=== PATIENT | female | born 1970 | race Caucasian/White ===

== ENCOUNTER 2018-06-17 14:50 | Emergency (ER) | payer MEDICAID ==
[~2018-06-17] VITALS: Ht 170.2 cm; Wt 88.9 kg
[~2018-06-17 14:50] MED LIST: ALBUTEROL INH; ALBUTEROL INHAL17 GM IH; ALBUTEROL2.5 MG/0.1 IH; ALBUTEROL2.5 MG/3 M; ALPRAZOLAM 0.50.5 M1 PO; AMBIEN 10 MG TA10 MG PO; ANASPAZ0.125 MG SL; ATIVAN1 MG PO; AZITHROMYCIN 2250 MG PO; AZITHROMYCIN PO; BACTRIM DS TAB1 EACH PO; BIAXIN 500 MG500 M1 PO; BUSPIRONE HCL10 MG PO; CEFPODOXIME PR200 M1 PO; CIPROFLOXACIN500 M1; CIPROFLOXACIN500 M1 PO; CLARITIN10 MG PO; CLONIDINE0.1 PO; COLACE100 MG PO; COMBIVENT INH; DEPAKOTE 250MG250 M1 PO; DEXILANT30 MG; DEXILANT60 MG PO; DOXYCYCLINE 10100 M1 PO; EFFEXOR XR37.5 MG PO; EFFEXOR XR75 MG; ESTROVEN MAX200 MCG; FENTANYL PA25 MCG/HR TRANSDERM; FIBERCON625 M1 PO; FLEXERIL PO; FLOVENT HFA 2220 MC1 IH; HYDROCODON-ACE1 EAC7 PO; HYDROCODONE-AP1 EAC6 PO; HYDROCODONE-APA15 ML; HYDROXYZINE HCL25 M1; HYDROXYZINE HCL25 M1 PO; IBUPROFEN 600600 M1 PO; IBUPROFEN 800800 M1 PO; LAMICTAL150 MG PO; LEXAPRO PO; LORTABELXR PO; MEDROL DOSE PACK PO; MIRALAX17 GM PO; NAC600 MG PO; NEFAZODONE HCL50 MG PO; NICOTINE TRANSD14 M1 TOP; NORCO 5-325 TA1 EACH PO; OXYCONTIN10 M1 PO; PHENERGAN 25 MG25 M1; PHENERGAN 25 MG25 M1 PO; PRAVASTATIN SOD20 MG PO; PRAVASTATIN SOD40 MG PO; PREDNISONE 10 M10 MG PO; PREVACID30 M1 PO; PRILOSEC40 MG PO; PROAIR HFA8.5 GM INH; PROMETHAZINE HC25 M1 PO; PROVENTIL HFA6.7 G1 INH; PYRIDIUM200 MG PO; REMERON15 M1 PO; SEROQUEL 25 MG25 M1 PO; SEROQUEL200 MG PO; SINGULAIR 10 MG10 M1 PO; SYMBICORT160 MCG/4. INH; SYMBICORT80 MCG/4.1 INH; TORADOL 10 MG T10 MG PO; TRAMADOL 50 MG50 MG PO; VALIUM5 MG PO; VICODIN 5-5001 EACH PO; VITAMIN D3400 UNI2 PO; XANAX 0.25 MG0.25 MG PO; XANAX XR1 MG; ZANAFLEX4 MG PO; ZOFRAN ODT4 MG PO; ZOLOFT100 MG; ZYRTEC; [UNRECOGNIZED DRUG - OTHER]; [UNRECOGNIZED DRUG - OTHER] PO; vantin PO
[2018-06-17] MEDS ORDERED: LIORESAL 10 MG10 MG PO (15:25)
[2018-06-17] MEDS ORDERED: CLONAZEPAM 0.50.5 M1 PO (15:25)
[2018-06-17] MEDS ORDERED: LIPITOR10 MG PO (15:26)
[2018-06-17] MEDS ORDERED: NEXIUM40 MG PO (15:26)
[2018-06-17] MEDS ORDERED: ALDACTONE100 MG PO (15:27)
[2018-06-17] MEDS ORDERED: SYNTHROID25 MC1 PO (15:27)
[2018-06-17] MEDS ORDERED: LISINOPRIL20 MG PO (15:27)
[2018-06-17] MEDS ORDERED: AMITIZA 24 MCG24 MC1 PO (15:28)
[2018-06-17] MEDS ORDERED: LEXAPRO5 MG PO (15:28)
[2018-06-17] MEDS ORDERED: NORCO 5-325 TA1 EACH PO (16:43)
[2018-06-17 16:56] VITALS: BP 144/93
== END 2018-06-17 16:57 | disposition home or self-care (01) ==
LOC: M.ERS 14:50
DX: S63.92XA Sprain of unspecified part of left wrist and hand, initial encounter (principal); W19.XXXA Unspecified fall, initial encounter; Y93.89 Activity, other specified; Y92.89 Other specified places as the place of occurrence of the external cause; Y99.8 Other external cause status; F41.9 Anxiety disorder, unspecified; J45.909 Unspecified asthma, uncomplicated; G43.909 Migraine, unspecified, not intractable, without status migrainosus; K21.9 Gastro-esophageal reflux disease without esophagitis; Z90.710 Acquired absence of both cervix and uterus; M54.9 Dorsalgia, unspecified; G89.29 Other chronic pain; F17.210 Nicotine dependence, cigarettes, uncomplicated; Z88.1 Allergy status to other antibiotic agents; Z88.0 Allergy status to penicillin; Z88.5 Allergy status to narcotic agent; Z88.8 Allergy status to other drugs, medicaments and biological substances

== ENCOUNTER 2018-12-08 11:00 | Emergency (ER) | payer MEDICAID ==
[~2018-12-08] VITALS: Ht 170.2 cm; Wt 90.7 kg
[~2018-12-08 11:00] MED LIST changes: +ALDACTONE100 MG PO; +AMITIZA 24 MCG24 MC1 PO; +CLONAZEPAM 0.50.5 M1 PO; +LEXAPRO5 MG PO; +LIORESAL 10 MG10 MG PO; +LIPITOR10 MG PO; +LISINOPRIL20 MG PO; +NEXIUM40 MG PO; +SYNTHROID25 MC1 PO
[2018-12-08] MEDS ORDERED: TRAMADOL 50 MG50 MG PO (11:10)
[2018-12-08 11:44] LABS: CALCIUM 9.3 mg/dL (8.5-10.1); CREATININE 0.7 mg/dL (0.6-1.3); POTASSIUM 3.9 mmol/L (3.5-5.1)
[2018-12-08] MEDS ORDERED: HYDROCODONE-AP1 EAC6 PO (12:04)
[2018-12-08 12:21] VITALS: BP 138/73
== END 2018-12-08 12:37 | disposition home or self-care (01) ==
LOC: M.ERS 11:00
PROVIDERS: Emergency Medicine Emergency Medical Services
DX: S22.42XA Multiple fractures of ribs, left side, initial encounter for closed fracture (principal); F17.210 Nicotine dependence, cigarettes, uncomplicated; F41.9 Anxiety disorder, unspecified; J45.909 Unspecified asthma, uncomplicated; M54.9 Dorsalgia, unspecified; G89.29 Other chronic pain; G43.909 Migraine, unspecified, not intractable, without status migrainosus; M41.9 Scoliosis, unspecified; K21.9 Gastro-esophageal reflux disease without esophagitis; K58.9 Irritable bowel syndrome, unspecified; Z88.8 Allergy status to other drugs, medicaments and biological substances; Z88.5 Allergy status to narcotic agent; Z88.1 Allergy status to other antibiotic agents; Z88.0 Allergy status to penicillin; Z90.710 Acquired absence of both cervix and uterus; W18.11XA Fall from or off toilet without subsequent striking against object, initial encounter; Y92.89 Other specified places as the place of occurrence of the external cause; Y93.89 Activity, other specified; Y99.8 Other external cause status

== ENCOUNTER 2019-08-15 01:43 | Emergency (ER) | payer OTHER, MEDICAID ==
[~2019-08-15] VITALS: Ht 170.2 cm; Wt 90.7 kg
[2019-08-15 02:25] LABS: ABSOLUTE EOSINOPHILS 0.1 thou/uL (0.0-0.7); ABSOLUTE LYMPHOCYTES 1.3 thou/uL (0.8-5.3); ABSOLUTE MONOCYTES 0.3 thou/uL (0.0-1.2); BASOPHILS 0.4 %; HEMATOCRIT 36.8 % (37.0-47.0); HEMOGLOBIN 12.7 gm/dL (12.0-15.0); LYMPHOCYTES 18.9 %; MCH 30.5 pg (26.0-34.0); MCHC 34.6 g/dL (28.0-37.0); MONOCYTES 4.6 %; MPV 8.5 fl. (7.2-11.1); NUCLEATED RBCS 0 /100WBC; PLATELET COUNT* 200 thou/uL (150-400); POLYS 74.1 %; RBC 4.18 mil/uL (4.20-5.00); RDW-CV 13.4 % (10.5-14.5); WBC 6.8 thou/uL (4.0-11.0)
[2019-08-15 02:35] LABS: CALCIUM 8.3 mg/dL (8.5-10.1); CREATININE 0.7 mg/dL (0.6-1.3)
[2019-08-15 02:37] LABS: POTASSIUM 2.9 mmol/L (3.5-5.1)
[2019-08-15 02:40] LABS: ALBUMIN 3.7 g/dL (3.4-5.0); TOTAL BILIRUBIN 0.4 mg/dL (<0.1-1.0); TOTAL PROTEIN 6.7 g/dL (6.4-8.2)
[2019-08-15] MEDS ORDERED: ZOFRAN ODT4 MG PO (03:25)
[2019-08-15 03:44] LABS: URINE BILIRUBIN NEGATIVE (Negative); URINE BLOOD NEGATIVE (Negative); URINE CLARITY CLEAR; URINE COLOR YELLOW; URINE GLUCOSE-RANDOM NEGATIVE (Negative); URINE KETONES NEGATIVE (Negative); URINE LEUKOCYTES-REFLEX NEGATIVE (Negative); URINE NITRITE-REFLEX NEGATIVE (Negative); URINE PROTEIN NEGATIVE (Negative); URINE SPECIFIC GRAVITY 1.025 (1.005-1.030); URINE UROBILINOGEN 0.2 E.U./dl (0.2-1.0)
[2019-08-15 03:52] LABS: AMP/METHAMP Negative (Negative); BARBITURATES Negative (Negative); BENZODIAZEPINES Negative (Negative); COCAINE Negative (Negative); METHADONE Negative (Negative); OPIATES Negative (Negative); PCP Negative (Negative); THC Negative (Negative)
[2019-08-15 03:58] VITALS: BP 115/60
--- NOTE | 2019-08-15 11:07 | EKG ---
[place] [address] ELECTROCARDIOGRAM REPORT Name: AYANA CARLISLE Room: [facility]#: [id number] Admission: 08/15/19 Attend Phys: Discharge: 08/15/19 Date of : 70 Report #: [id number] THIS REPORT FOR: //name// [facility] ED Test Date: 2019-08-15 Test Time: 02:06:32 Pat Name: AYANA CARLISLE Department: Room: Gender: F Soldering Machine Operator: SHANNON : 1970 Requested By: Constance Barron Order Number: [id number] Melida MD: Maycol Isbell Measurements Intervals [place]ler Rate: 81 P: 3 IN: 184 QRS: 36 QRSD: 108 T: 18 QT: 395 QTc: 459 Interpretive Statements Sinus rhythm Probable left atrial enlargement RSR' in V1 or V2, probably normal variant Compared to ECG 01/14/2015 12:42:14 no change Electronically Signed On 08-15-2019 11:07:29 [employer]ANKING TE[employer] by Maycol Isbell [email or web address] <ELECTRONICALLY SIGNED> By: Maycol Isbell MD, [facility] 08/15/19 1107 5 Maycol Isbell MD, FAC /EPI
== END 2019-08-15 03:59 | disposition home or self-care (01) ==
LOC: M.ERS 01:43
PROVIDERS: Personal Emergency Response Attendant
DX: K52.9 Noninfective gastroenteritis and colitis, unspecified (principal); G43.909 Migraine, unspecified, not intractable, without status migrainosus; F41.9 Anxiety disorder, unspecified; J45.909 Unspecified asthma, uncomplicated; G89.29 Other chronic pain; M19.90 Unspecified osteoarthritis, unspecified site; M41.9 Scoliosis, unspecified; K21.9 Gastro-esophageal reflux disease without esophagitis; F17.210 Nicotine dependence, cigarettes, uncomplicated; K58.9 Irritable bowel syndrome, unspecified; Z88.0 Allergy status to penicillin; Z88.1 Allergy status to other antibiotic agents; Z90.710 Acquired absence of both cervix and uterus; Z88.8 Allergy status to other drugs, medicaments and biological substances

== ENCOUNTER 2020-10-28 21:56 | Emergency (ER) | payer MEDICAID ==
[~2020-10-28] VITALS: Ht 172.7 cm; Wt 88.5 kg
[2020-10-28] MEDS ORDERED: SUPER THERAVIT1 EACH PO (22:21)
[2020-10-28] MEDS ORDERED: VITAMIN D-40010 MCG PO (22:21)
[2020-10-28] MEDS ORDERED: COQ-1030 MG PO (22:21)
[2020-10-28 22:42] LABS: ABSOLUTE BASOPHILS 0.1 thou/uL (0.0-0.2); ABSOLUTE EOSINOPHILS 0.1 thou/uL (0.0-0.7); ABSOLUTE LYMPHOCYTES 2.2 thou/uL (0.8-5.3); ABSOLUTE MONOCYTES 0.3 thou/uL (0.0-1.2); ABSOLUTE NEUTROPHILS 5.8 thou/uL (1.6-8.1); BASOPHILS 0.9 %; EOSINOPHILS 1.7 %; LYMPHOCYTES 25.9 %; MCH 30.9 pg (26.0-34.0); MCHC 34.4 g/dL (28.0-37.0); MCV 89.9 fL (80.0-100.0); MONOCYTES 3.7 %; NUCLEATED RBCS 0 /100WBC; PLATELET COUNT* 267 thou/uL (150-400); POLYS 67.8 %; RBC 3.89 mil/uL (4.20-5.00); RDW-CV 13.4 % (10.5-14.5); WBC 8.6 thou/uL (4.0-11.0)
[2020-10-28 22:50] LABS: CALCIUM 8.3 mg/dL (8.5-10.1); CREATININE 0.6 mg/dL (0.6-1.3); POTASSIUM 3.7 mmol/L (3.5-5.1)
[2020-10-28] MEDS ORDERED: PROTONIX 20 MG20 MG PO (22:54)
[2020-10-28 23:02] LABS: ALBUMIN 3.7 g/dL (3.4-5.0); TOTAL BILIRUBIN 0.2 mg/dL (<0.1-1.0); TOTAL PROTEIN 6.5 g/dL (6.4-8.2)
[2020-10-29 00:11] VITALS: BP 136/79
== END 2020-10-29 00:12 | disposition home or self-care (01) ==
LOC: M.ERS 21:56
PROVIDERS: Physician Assistant
DX: R06.02 Shortness of breath (principal); G43.909 Migraine, unspecified, not intractable, without status migrainosus; K21.9 Gastro-esophageal reflux disease without esophagitis; J45.909 Unspecified asthma, uncomplicated; F17.210 Nicotine dependence, cigarettes, uncomplicated; Z90.710 Acquired absence of both cervix and uterus; Z79.1 Long term (current) use of non-steroidal anti-inflammatories (NSAID); Z79.899 Other long term (current) drug therapy; Z88.0 Allergy status to penicillin; Z88.5 Allergy status to narcotic agent; Z88.8 Allergy status to other drugs, medicaments and biological substances; Z20.828 Contact with and (suspected) exposure to other viral communicable diseases